=== PATIENT | male | born 1970 | race African-American/Black ===

== ENCOUNTER 2021-11-02 13:37 | Emergency (ER) | payer MEDICAID ==
[~2021-11-02] VITALS: Ht 175.3 cm; Wt 79.4 kg
[2021-11-02 13:46] VITALS: BP_SYST 134
[2021-11-02 14:37] VITALS: BP_SYST 133
== END 2021-11-02 14:39 | disposition home or self-care (01) ==
LOC: SED 13:37
DX: Z02.89 Encounter for other administrative examinations (principal); E11.9 Type 2 diabetes mellitus without complications
CPT/HCPCS: 99283